=== PATIENT | female | born 1980 | race Asian ===

== ENCOUNTER 2021-03-22 11:20 | Emergency (ER) | payer OTHER ==
[2021-03-22] MEDS ORDERED: ACETAMINOPHEN 500 MG TABLET (FP) PO ONE (11:28)
[2021-03-22 11:36] VITALS: BP 117/69; PULSE 97; TEMP 98.8; BMI 20.2
[2021-03-22] MEDS ORDERED: ACETAMINOPHEN 325 MG TABLET (FP) ONE (11:37)
== END 2021-03-22 12:57 | disposition home or self-care (01) ==
LOC: FER 11:20
DX: S82.832A Other fracture of upper and lower end of left fibula, initial encounter for closed fracture (principal); S82.65XA Nondisplaced fracture of lateral malleolus of left fibula, initial encounter for closed fracture; W01.0XXA Fall on same level from slipping, tripping and stumbling without subsequent striking against object, initial encounter
CPT/HCPCS: 73610-TC-LT-FY; 73630-TC-LT; 99283-25

== ENCOUNTER 2021-03-29 12:43 | Day surgery (SDC) | payer OTHER ==
[2021-03-26 13:44] VITALS: BMI 20.5
[2021-03-29] MEDS ORDERED: MIDAZOLAM HCL 2 MG/2 ML SINGLE DOSE VIAL ONE ×3 (13:39→15:19)
[2021-03-29] MEDS ORDERED: BUPIVACAINE HCL/PF 0.5% (5 MG/ML) 30 ML VIAL IJ ONE (13:39)
[2021-03-29] MEDS ORDERED: BUPIVACAINE HCL 50 ML ONE (14:31)
[2021-03-29] MEDS ORDERED: PROPOFOL 20 ML ONE ×3 (14:33)
[2021-03-29] MEDS ORDERED: SUCCINYLCHOLINE CHLORIDE 200 MG/10 ML SYRINGE ONE (14:33)
[2021-03-29] MEDS ORDERED: ONDANSETRON 4 MG/2 ML VIAL IVPUSH PRN (14:56)
[2021-03-29] MEDS ORDERED: PROMETHAZINE HCL 25 MG/1 ML VIAL IVPUSH PRN (14:56)
[2021-03-29] MEDS ORDERED: oxyCODONE HCL 5 MG TABLET PO PRN (14:56)
[2021-03-29] MEDS ORDERED: LACTATED RINGERS SOLUTION 1,000 ML IV SCH (15:00)
[2021-03-29 18:11] VITALS: TEMP 98
[2021-03-29 18:22] VITALS: PULSE 79
[2021-03-29 19:24] VITALS: BP 116/74
== END 2021-03-29 20:05 | disposition home or self-care (01) ==
LOC: FASU 12:43
PROVIDERS: ATTEND Orthopaedic Surgery Sports Medicine
PROC: 0SSG04Z Reposition Left Ankle Joint with Internal Fixation Device, Open Approach (ICD-10-PCS; 2021-03-29)
PROC: 0QSK04Z Reposition Left Fibula with Internal Fixation Device, Open Approach (ICD-10-PCS; principal; 2021-03-29 15:11)
DX: S82.62XA Displaced fracture of lateral malleolus of left fibula, initial encounter for closed fracture (principal); S93.432A Sprain of tibiofibular ligament of left ankle, initial encounter; X58.XXXA Exposure to other specified factors, initial encounter; Y93.9 Activity, unspecified; Y92.9 Unspecified place or not applicable
CPT/HCPCS: 73610-TC-LT-FY; 73630-TC-LT; 84703; 94760

== ENCOUNTER 2022-07-24 18:52 | Emergency (ER) | payer OTHER ==
[2022-07-24 19:09] VITALS: TEMP 98.7; BMI 20.5
[2022-07-24 20:37] VITALS: BP 102/74; PULSE 67; RESP 16
== END 2022-07-24 20:39 | disposition home or self-care (01) ==
LOC: FER 18:52
DX: R20.0 Anesthesia of skin (principal); S00.261A Insect bite (nonvenomous) of right eyelid and periocular area, initial encounter; W57.XXXA Bitten or stung by nonvenomous insect and other nonvenomous arthropods, initial encounter
CPT/HCPCS: 70450-TC; 99284-25